=== PATIENT | male | born 1990 | race African-American/Black ===

== ENCOUNTER 2017-09-17 22:42 | Emergency (ER) | payer SELFPAY ==
[~2017-09-17] VITALS: Ht 167.6 cm; Wt 83.0 kg
[2017-09-18] MEDS ORDERED: LORAZEPAM 1MG TABLET PO ONE (03:45)
[2017-09-18 06:38] VITALS: BP 117/73
== END 2017-09-18 06:44 | disposition home or self-care (01) ==
LOC: ER 22:42
DX: F41.0 Panic disorder [episodic paroxysmal anxiety] (principal)
CPT/HCPCS: 99283